=== PATIENT | male | born 1940 | race Caucasian/White ===

== ENCOUNTER 2018-04-11 10:29 | Inpatient (IN) ==
[~2018-04-11 10:29] MED LIST: DIAZEPAM 5 MG TABLET PO ONE; ceFAZolin 1,000 MG VIAL IRRIG ONE; ceFAZolin 1,000 MG in SYRINGE 1 EACH IV ONE; diphenhydrAMINE CAP 25 MG CAPSULE PO ONE
[2018-04-11] MEDS: SODIUM CHLORIDE 0.9% 1,000 ML IV SCH (11:33)
[2018-04-11 11:47] LABS: Basophils # 0.1 10*3/uL (0.0-0.2); Basophils % 0.6 % (0.0-0.8); Eosinophils # 0.2 10*3/uL (0.0-0.87); Eosinophils % 1.8 % (0.00-10.9); Hematocrit 39.9 VOL% (42.0-52.0); Hemoglobin 13.5 GM/DL (14.0-18.0); Immature Granulocytes % 0.4 %; Immature Granulocytes Absolute 0.03 #; Lymphocytes # 1.7 10*3/uL (1.4-4.0); Lymphocytes % 19.7 % (21.2-54.2); Mean Corpuscular HGB Conc 33.8 GM/DL (32-36); Mean Corpuscular Hemoglobin 29 PG (27-34); Mean Corpuscular Volume 84.9 FL (87-102); Mean Platelet Volume 10.1 FL (9.6-12.0); Monocytes # 0.8 10*3/uL (0.11-0.8); Monocytes % 8.8 % (1.7-12.7); Neutrophils # 5.9 10*3/uL (1.4-7.4); Neutrophils % 68.7 % (38.7-73.9); Platelet Count 187 T/CUMM (130-400); Red Cell Distribution Width 14.1 % (9.3-17.3); White Blood Count 8.6 T/CUMM (4-12)
[2018-04-11 12:22] LABS: Calcium 8.8 MG/DL (8.5-10.1); Osmolality,Calculated 282.4 MOS/KG (273-304); Potassium 3.7 MMOL/L (3.5-5.1)
[2018-04-11] MEDS ORDERED: diphenhydrAMINE CAP 25 MG CAPSULE ONE (12:53)
[2018-04-11] MEDS ORDERED: DIAZEPAM 5 MG TABLET ONE (12:53)
[2018-04-11] MEDS ORDERED: fentaNYL 50 MCG/HR PATCH TRANSDERM PRN (16:37)
[2018-04-11] MEDS ORDERED: hydrALAZINE 20 MG/1 ML VIAL IV PRN (16:58)
[2018-04-11] MEDS: LATANOPROST 0.005% OPH SOLN 2.5 ML BOTTLE BOTH EYES SCH (21:51)
[2018-04-12] MEDS: SODIUM CHLORIDE 0.9% 1,000 ML IV SCH ×2 (04:50→12:18)
[2018-04-12 05:41] LABS: Basophils # 0.1 10*3/uL (0.0-0.2); Eosinophils # 0.2 10*3/uL (0.0-0.87); Eosinophils % 3.7 % (0.00-10.9); Hematocrit 40.3 VOL% (42.0-52.0); Hemoglobin 13.7 GM/DL (14.0-18.0); Immature Granulocytes % 0.2 %; Immature Granulocytes Absolute 0.01 #; Lymphocytes # 1.7 10*3/uL (1.4-4.0); Lymphocytes % 29.3 % (21.2-54.2); Mean Corpuscular Hemoglobin 28 PG (27-34); Mean Corpuscular Volume 82.9 FL (87-102); Mean Platelet Volume 9.9 FL (9.6-12.0); Monocytes # 0.7 10*3/uL (0.11-0.8); Monocytes % 12.1 % (1.7-12.7); Neutrophils # 3.2 10*3/uL (1.4-7.4); Neutrophils % 53.7 % (38.7-73.9); Platelet Count 172 T/CUMM (130-400); Red Blood Count 4.86 MC/CUMM (3.8-5.5); Red Cell Distribution Width 14.2 % (9.3-17.3); White Blood Count 5.9 T/CUMM (4-12)
[2018-04-12 05:58] LABS: Calcium 8.7 MG/DL (8.5-10.1); Osmolality,Calculated 281.3 MOS/KG (273-304); Potassium 3.8 MMOL/L (3.5-5.1)
[2018-04-12] MEDS ORDERED: ceFAZolin 1,000 MG in SYRINGE 1 EACH IV ONE (11:30)
[2018-04-12] MEDS ORDERED: diphenhydrAMINE CAP 25 MG CAPSULE PO ONE (12:00)
[2018-04-12] MEDS ORDERED: DIAZEPAM 5 MG TABLET PO ONE (12:00)
[2018-04-12] MEDS ORDERED: ceFAZolin 1,000 MG VIAL IRRIG ONE (12:30)
[2018-04-12] MEDS ORDERED: HEPARIN/NACL 0.9% 2 UNITS/ML 500 ML IV ONE (12:58)
[2018-04-12] MEDS ORDERED: LIDOCAINE 1% 20 ML VIAL ONE (12:58)
[2018-04-12] MEDS ORDERED: MIDAZOLAM 2 MG/2 ML VIAL ONE ×4 (13:02→13:49)
[2018-04-12] MEDS ORDERED: ceFAZolin 1,000 MG VIAL ONE (13:02)
[2018-04-12] MEDS ORDERED: fentaNYL 100 MCG/2 ML VIAL ONE (13:02)
[2018-04-12] MEDS ORDERED: TISSUE ADHESIVE 1 EACH APPLICATOR TOP ONE (13:18)
[2018-04-12] MEDS: ASPIRIN EC 81 MG TABLET PO SCH (15:49)
[2018-04-12] MEDS: PANTOPRAZOLE 40 MG TABLET PO SCH (15:59)
[2018-04-12] MEDS: MONTELUKAST 10 MG TABLET PO SCH (15:59)
[2018-04-12] MEDS: oxyCODONE/ACETAMINOPHEN 5-325 MG TABLET PO PRN ×2 (15:59→20:18)
[2018-04-12] MEDS: amLODIPine 10 MG TABLET PO SCH (15:59)
[2018-04-12] MEDS: LATANOPROST 0.005% OPH SOLN 2.5 ML BOTTLE BOTH EYES SCH (20:18)
[2018-04-13] MEDS: oxyCODONE/ACETAMINOPHEN 5-325 MG TABLET PO PRN ×2 (01:14→10:08)
[2018-04-13 04:15] LABS: Basophils % 0.6 % (0.0-0.8); Eosinophils # 0.3 10*3/uL (0.0-0.87); Eosinophils % 4.1 % (0.00-10.9); Hematocrit 38.7 VOL% (42.0-52.0); Hemoglobin 13.2 GM/DL (14.0-18.0); Immature Granulocytes % 0.3 %; Immature Granulocytes Absolute 0.02 #; Lymphocytes # 1.5 10*3/uL (1.4-4.0); Lymphocytes % 23.9 % (21.2-54.2); Mean Corpuscular HGB Conc 34.1 GM/DL (32-36); Mean Corpuscular Hemoglobin 28 PG (27-34); Mean Corpuscular Volume 82.5 FL (87-102); Mean Platelet Volume 9.9 FL (9.6-12.0); Monocytes # 0.7 10*3/uL (0.11-0.8); Monocytes % 11.5 % (1.7-12.7); Neutrophils # 3.8 10*3/uL (1.4-7.4); Neutrophils % 59.6 % (38.7-73.9); Platelet Count 156 T/CUMM (130-400); Red Blood Count 4.69 MC/CUMM (3.8-5.5); White Blood Count 6.4 T/CUMM (4-12)
[2018-04-13 04:50] LABS: Calcium 8.3 MG/DL (8.5-10.1); Calcium 8.4 MG/DL (8.5-10.1); Osmolality,Calculated 278.5 MOS/KG (273-304); Osmolality,Calculated 279.4 MOS/KG (273-304); Potassium 3.7 MMOL/L (3.5-5.1)
[2018-04-13] MEDS: PANTOPRAZOLE 40 MG TABLET PO SCH (08:31)
[2018-04-13] MEDS: MONTELUKAST 10 MG TABLET PO SCH (08:31)
[2018-04-13] MEDS: amLODIPine 10 MG TABLET PO SCH (08:32)
[2018-04-13] MEDS: ASPIRIN EC 81 MG TABLET PO SCH (08:32)
[2018-04-13 11:41] VITALS: BP 142/76
== END 2018-04-13 14:20 | disposition home or self-care (01) | DRG 244 ==
LOC: N.CL 10:29 → N.TELEN 16:33 → N.2W 16:47 → N.TELEN 17:54
PROVIDERS: ADMIT Internal Medicine Cardiovascular Disease; ATTEND Internal Medicine Cardiovascular Disease

== ENCOUNTER 2021-04-05 00:16 | Inpatient (IN) ==
[2021-04-05] MEDS ORDERED: ONDANSETRON 4 MG/2 ML VIAL IV PRN (04:19)
[2021-04-05] MEDS: SODIUM CHLORIDE 0.9% 1,000 ML IV SCH ×2 (06:07→21:36)
[2021-04-05 06:17] LABS: Basophils % 0.2 % (0.0-0.8); Hematocrit 38.8 VOL% (42.0-52.0); Hemoglobin 12.2 GM/DL (14.0-18.0); Immature Granulocytes % 0.7 %; Immature Granulocytes Absolute 0.14 #; Lymphocytes % 4.7 % (21.2-54.2); Mean Corpuscular HGB Conc 31.4 GM/DL (32-36); Mean Corpuscular Volume 85.1 FL (87-102); Mean Platelet Volume 10.4 FL (9.6-12.0); Monocytes % 4.7 % (1.7-12.7); Neutrophils % 89.7 % (38.7-73.9); Platelet Count 208 T/CUMM (130-400); Red Blood Count 4.56 MC/CUMM (3.8-5.5); Red Cell Distribution Width 16.4 % (9.3-17.3); White Blood Count 20.1 T/CUMM (4-12)
[2021-04-05 06:26] LABS: INR 1.2; PT Patient Result 13.2 SECS (10.5-12.0)
[2021-04-05 06:43] LABS: Hypochromasia Slight; Lymphocytes 7 % (20-55); Microcytosis Slight; Platelet Estimate Adequate; Segmented Neutrophils 91 % (50-85); Total Cells Counted 100
[2021-04-05 07:02] LABS: Albumin 3.3 G/DL (3.4-5.0); Osmolality,Calculated 279.7 MOS/KG (273-304); Potassium 3.5 MMOL/L (3.5-5.1); Total Protein 7.6 G/DL (6.4-8.2)
[2021-04-05 07:15] LABS: Bilirubin,Total 3.8 MG/DL (0.20-1.00)
[2021-04-05] MEDS ORDERED: NALOXONE 0.4 MG/ML VIAL IV PRN (08:51)
[2021-04-05] MEDS: PANTOPRAZOLE 40 MG VIAL IV SCH (09:02)
[2021-04-05] MEDS: metroNIDAZOLE INJ 500 MG/100 ML PREMIX IV SCH ×3 (09:02→20:25)
[2021-04-05] MEDS: HYDROmorphone 2 MG/1 ML VIAL IV PRN ×4 (09:16→21:31)
[2021-04-05] MEDS: CIPROFLOXACIN INJ 400 MG/200 ML PREMIX IV SCH (11:45)
[2021-04-05] MEDS: ACETAMINOPHEN 325 MG TABLET PO PRN (11:58)
[2021-04-05] MEDS: GABAPENTIN 300 MG CAPSULE PO SCH ×2 (14:30→21:31)
[2021-04-05] MEDS ORDERED: ROSUVASTATIN 20 MG TABLET PO SCH (21:00)
[2021-04-05] MEDS: TAMSULOSIN 0.4 MG CAPSULE PO SCH (21:31)
[2021-04-05] MEDS: LATANOPROST 0.005% OPH SOLN 2.5 ML BOTTLE BOTH EYES SCH (21:31)
[2021-04-05] MEDS: METOPROLOL TARTRATE 25 MG TABLET PO SCH (21:31)
[2021-04-06] MEDS: CIPROFLOXACIN INJ 400 MG/200 ML PREMIX IV SCH ×2 (00:14→16:07)
[2021-04-06] MEDS: metroNIDAZOLE INJ 500 MG/100 ML PREMIX IV SCH ×4 (01:23→22:39)
[2021-04-06 06:56] LABS: Basophils % 0.4 % (0.0-0.8); Eosinophils # 0.1 10*3/uL (0.0-0.87); Eosinophils % 0.8 % (0.00-10.9); Hematocrit 35.1 VOL% (42.0-52.0); Hemoglobin 11.5 GM/DL (14.0-18.0); Immature Granulocytes % 0.5 %; Immature Granulocytes Absolute 0.05 #; Lymphocytes # 1.1 10*3/uL (1.4-4.0); Lymphocytes % 9.9 % (21.2-54.2); Mean Corpuscular HGB Conc 32.8 GM/DL (32-36); Mean Platelet Volume 10.9 FL (9.6-12.0); Monocytes % 7.1 % (1.7-12.7); Neutrophils % 81.3 % (38.7-73.9); Platelet Count 159 T/CUMM (130-400); Red Blood Count 4.18 MC/CUMM (3.8-5.5); Red Cell Distribution Width 16.7 % (9.3-17.3); White Blood Count 10.6 T/CUMM (4-12)
[2021-04-06 07:03] LABS: INR 1.3
[2021-04-06 07:35] LABS: Albumin 2.9 G/DL (3.4-5.0); Bilirubin,Total 2.2 MG/DL (0.20-1.00); Calcium 9.3 MG/DL (8.5-10.1); Osmolality,Calculated 271.1 MOS/KG (273-304); Potassium 3.1 MMOL/L (3.5-5.1); Total Protein 6.8 G/DL (6.4-8.2)
[2021-04-06] MEDS ORDERED: INDOMETHACIN SUPP 50 MG SUPP RECTAL ONE (08:00)
[2021-04-06] MEDS: PANTOPRAZOLE 40 MG VIAL IV SCH (08:47)
[2021-04-06] MEDS: amLODIPine 10 MG TABLET PO SCH (08:47)
[2021-04-06] MEDS: METOPROLOL TARTRATE 25 MG TABLET PO SCH ×2 (08:47→21:00)
[2021-04-06] MEDS: POTASSIUM CHLORIDE RIDER 10 MEQ/100 ML PREMIX IV PRN ×4 (08:48→18:31)
[2021-04-06 09:47] LABS: Bilirubin,Urine Negative (Negative); Blood, Urine Negative (Negative); Glucose,Urine (UA) Negative (Negative); Ketones,Urine Negative (Negative); Mucus,Urine Occasional /LPF (Occasional); Nitrite,Urine Negative (Negative); Protein,Urine Negative; RBC,Urine <1 /HPF (0-4); Urine Appearance CLEAR (Clear); Urine Color Yellow (Yellow); Urine Specific Gravity 1.009 (1.001-1.035); Urine Urobilinogen < 2.0 EU/DL (0.2-1.0)
[2021-04-06] MEDS: ASPIRIN EC 81 MG TABLET PO SCH (10:17)
[2021-04-06] MEDS: GABAPENTIN 300 MG CAPSULE PO SCH ×2 (10:17→21:00)
[2021-04-06] MEDS: KETOROLAC 15 MG/1 ML VIAL IV PRN ×2 (10:28→22:39)
[2021-04-06] MEDS: LACTATED RINGERS 1,000 ML IV SCH (12:30)
[2021-04-06] MEDS ORDERED: fentaNYL 100 MCG/2 ML VIAL ONE (12:49)
[2021-04-06] MEDS ORDERED: propofoL 200 MG/20 ML VIAL IV ONE (12:50)
[2021-04-06] MEDS ORDERED: LIDOCAINE 2% 5 ML VIAL ONE (12:50)
[2021-04-06] MEDS ORDERED: ONDANSETRON 4 MG/2 ML VIAL ONE (13:08)
[2021-04-06] MEDS ORDERED: SEVOFLURANE 1 UNIT/15 MINUTE INH ONE (13:08)
[2021-04-06] MEDS ORDERED: SUCCINYLCHOLINE 200 MG/10 ML VIAL ONE (13:08)
[2021-04-06] MEDS ORDERED: DEXAMETHASONE 4 MG/1 ML VIAL ONE (14:01)
[2021-04-06] MEDS: HYDROmorphone 2 MG/1 ML VIAL IV PRN ×2 (16:06→21:00)
[2021-04-06] MEDS: ACETAMINOPHEN 325 MG TABLET PO PRN (18:32)
[2021-04-06] MEDS: TAMSULOSIN 0.4 MG CAPSULE PO SCH (21:00)
[2021-04-06] MEDS: LATANOPROST 0.005% OPH SOLN 2.5 ML BOTTLE BOTH EYES SCH (21:06)
[2021-04-06] MEDS: SODIUM CHLORIDE 0.9% 1,000 ML IV SCH ×2 (22:43→22:45)
[2021-04-07] MEDS: HYDROmorphone 2 MG/1 ML VIAL IV PRN ×4 (02:18→22:25)
[2021-04-07] MEDS: CIPROFLOXACIN INJ 400 MG/200 ML PREMIX IV SCH ×2 (03:43→19:14)
[2021-04-07 06:08] LABS: Hematocrit 33.9 VOL% (42.0-52.0); Hemoglobin 10.7 GM/DL (14.0-18.0); Immature Granulocytes % 0.3 %; Immature Granulocytes Absolute 0.02 #; Lymphocytes # 0.6 10*3/uL (1.4-4.0); Lymphocytes % 9.1 % (21.2-54.2); Mean Corpuscular HGB Conc 31.6 GM/DL (32-36); Mean Corpuscular Volume 84.3 FL (87-102); Mean Platelet Volume 11.4 FL (9.6-12.0); Monocytes % 6.5 % (1.7-12.7); Neutrophils % 84.1 % (38.7-73.9); Platelet Count 144 T/CUMM (130-400); Red Blood Count 4.02 MC/CUMM (3.8-5.5); Red Cell Distribution Width 16.1 % (9.3-17.3); White Blood Count 6.3 T/CUMM (4-12)
[2021-04-07] MEDS: metroNIDAZOLE INJ 500 MG/100 ML PREMIX IV SCH ×3 (06:11→21:37)
[2021-04-07 06:19] LABS: INR 1.2; PT Patient Result 13.7 SECS (10.5-12.0)
[2021-04-07 06:32] LABS: Albumin 2.7 G/DL (3.4-5.0); Bilirubin,Total 1.4 MG/DL (0.20-1.00); Calcium 8.3 MG/DL (8.5-10.1); Osmolality,Calculated 280.7 MOS/KG (273-304); Potassium 3.4 MMOL/L (3.5-5.1); Total Protein 6.2 G/DL (6.4-8.2)
[2021-04-07 06:53] LABS: Risk Ratio 2.67; VLDL Cholesterol 12.8 MG/DL
[2021-04-07] MEDS ORDERED: POTASSIUM CHLORIDE 20 MEQ TABLET PO ONE (07:30)
[2021-04-07] MEDS: amLODIPine 10 MG TABLET PO SCH (09:21)
[2021-04-07] MEDS: METOPROLOL TARTRATE 25 MG TABLET PO SCH ×2 (09:21→21:37)
[2021-04-07] MEDS: PANTOPRAZOLE 40 MG VIAL IV SCH (09:23)
[2021-04-07] MEDS: GABAPENTIN 300 MG CAPSULE PO SCH ×2 (09:32→21:37)
[2021-04-07] MEDS: ASPIRIN EC 81 MG TABLET PO SCH (09:32)
[2021-04-07] MEDS ORDERED: LACTATED RINGERS 1,000 ML IV SCH (10:30)
[2021-04-07] MEDS ORDERED: fentaNYL 100 MCG/2 ML VIAL ONE (11:38)
[2021-04-07] MEDS ORDERED: propofoL 200 MG/20 ML VIAL IV ONE (11:43)
[2021-04-07] MEDS ORDERED: ROCURONIUM 50 MG/5 ML VIAL IV ONE (11:43)
[2021-04-07] MEDS ORDERED: LIDOCAINE 2% 5 ML VIAL ONE (11:43)
[2021-04-07] MEDS ORDERED: SUCCINYLCHOLINE 200 MG/10 ML VIAL ONE (11:43)
[2021-04-07] MEDS ORDERED: ETOMIDATE 40 MG/20 ML VIAL IV ONE (11:43)
[2021-04-07] MEDS ORDERED: PHENOL 1.4% THROAT SPRAY 177 ML BOTTLE PO PRN (11:47)
[2021-04-07] MEDS ORDERED: ONDANSETRON 4 MG/2 ML VIAL ONE (11:47)
[2021-04-07] MEDS ORDERED: BUPIVACAINE MPF 0.25% 30 ML VIAL ONE (11:51)
[2021-04-07] MEDS ORDERED: LIDOCAINE 1%/EPI INJ 20 ML VIAL ONE (11:51)
[2021-04-07] MEDS ORDERED: TISSUE ADHESIVE 1 EACH APPLICATOR TOP ONE (11:51)
[2021-04-07] MEDS ORDERED: NEOSTIGMINE 10 MG/10 ML VIAL ONE (13:04)
[2021-04-07] MEDS ORDERED: GLYCOPYRROLATE 0.4 MG/2 ML VIAL ONE (13:28)
[2021-04-07] MEDS ORDERED: SEVOFLURANE 1 UNIT/15 MINUTE INH ONE (13:29)
[2021-04-07] MEDS ORDERED: HYDROmorphone 2 MG/1 ML VIAL IV PRN (13:35)
[2021-04-07] MEDS ORDERED: ONDANSETRON 4 MG/2 ML VIAL IV PRN (13:35)
[2021-04-07] MEDS: LACTATED RINGERS 1,000 ML IV SCH (15:42)
[2021-04-07] MEDS: TAMSULOSIN 0.4 MG CAPSULE PO SCH (21:36)
[2021-04-07] MEDS: LATANOPROST 0.005% OPH SOLN 2.5 ML BOTTLE BOTH EYES SCH (21:37)
[2021-04-07] MEDS: SODIUM CHLORIDE 0.9% 1,000 ML IV SCH (22:24)
[2021-04-08] MEDS: SODIUM CHLORIDE 0.9% 1,000 ML IV SCH (00:46)
[2021-04-08] MEDS: HYDROmorphone 2 MG/1 ML VIAL IV PRN ×2 (02:34→07:39)
[2021-04-08] MEDS: metroNIDAZOLE INJ 500 MG/100 ML PREMIX IV SCH ×2 (02:35→09:28)
[2021-04-08] MEDS: CIPROFLOXACIN INJ 400 MG/200 ML PREMIX IV SCH (03:44)
[2021-04-08 06:04] LABS: Basophils % 0.1 % (0.0-0.8); Hemoglobin 11.8 GM/DL (14.0-18.0); Immature Granulocytes % 0.6 %; Immature Granulocytes Absolute 0.06 #; Lymphocytes % 10.6 % (21.2-54.2); Mean Corpuscular HGB Conc 31.9 GM/DL (32-36); Mean Corpuscular Volume 84.3 FL (87-102); Monocytes % 7.6 % (1.7-12.7); Neutrophils % 81.1 % (38.7-73.9); Platelet Count 175 T/CUMM (130-400); Red Blood Count 4.39 MC/CUMM (3.8-5.5); Red Cell Distribution Width 16.3 % (9.3-17.3); White Blood Count 9.4 T/CUMM (4-12)
[2021-04-08 06:11] LABS: INR 1.4; PT Patient Result 15.6 SECS (10.5-12.0)
[2021-04-08 06:38] LABS: Albumin 3.2 G/DL (3.4-5.0); Bilirubin,Total 1.4 MG/DL (0.20-1.00); Calcium 8.7 MG/DL (8.5-10.1); Osmolality,Calculated 278.7 MOS/KG (273-304); Potassium 3.7 MMOL/L (3.5-5.1)
[2021-04-08] MEDS: LACTATED RINGERS 1,000 ML IV SCH (07:40)
[2021-04-08] MEDS ORDERED: WARFARIN 5 MG TABLET PO ONE (09:15)
[2021-04-08] MEDS: GABAPENTIN 300 MG CAPSULE PO SCH (09:26)
[2021-04-08] MEDS: METOPROLOL TARTRATE 25 MG TABLET PO SCH (09:27)
[2021-04-08] MEDS: amLODIPine 10 MG TABLET PO SCH (09:27)
[2021-04-08] MEDS: ASPIRIN EC 81 MG TABLET PO SCH (09:27)
[2021-04-08] MEDS: PANTOPRAZOLE 40 MG VIAL IV SCH (09:27)
[2021-04-08 11:42] VITALS: BP 116/63
[2021-04-09] MEDS ORDERED: WARFARIN 2 MG TABLET PO SCH (18:00)
[2021-04-12] MEDS ORDERED: WARFARIN 2 MG TABLET PO SCH (18:00)
== END 2021-04-08 11:38 | disposition home or self-care (01) | DRG 419 ==
LOC: N.3E → OBSVTOIN 03:34 → SUATTDRO 03:34
PROVIDERS: ADMIT Internal Medicine; ATTEND Internal Medicine
PROC: ERCPWSP (ICD-10-PCS; 2021-04-06 11:35)
PROC: LAPCHOL (2021-04-07 12:17)

== ENCOUNTER 2021-05-23 05:57 | Inpatient (IN) ==
[2021-05-18 12:29] LABS: Basophils # 0.1 10*3/uL (0.0-0.2); Basophils % 0.8 % (0.0-0.8); Eosinophils # 0.3 10*3/uL (0.0-0.87); Eosinophils % 4.6 % (0.00-10.9); Hematocrit 35.9 VOL% (42.0-52.0); Hemoglobin 11.5 GM/DL (14.0-18.0); Immature Granulocytes % 0.2 %; Immature Granulocytes Absolute 0.01 #; Lymphocytes # 1.7 10*3/uL (1.4-4.0); Mean Corpuscular Volume 83.5 FL (87-102); Mean Platelet Volume 10.9 FL (9.6-12.0); Monocytes % 9.9 % (1.7-12.7); Neutrophils % 57.5 % (38.7-73.9); Platelet Count 176 T/CUMM (130-400); Red Cell Distribution Width 14.9 % (9.3-17.3); White Blood Count 6.3 T/CUMM (4-12)
[2021-05-18 12:42] LABS: PT Patient Result 31.4 SECS (10.5-12.0)
[2021-05-18 12:58] LABS: Albumin 3.9 G/DL (3.4-5.0); Calcium 8.7 MG/DL (8.5-10.1); Osmolality,Calculated 282.4 MOS/KG (273-304); Potassium 4.2 MMOL/L (3.5-5.1); Total Protein 7.1 G/DL (6.4-8.2)
[2021-05-23 06:57] LABS: INR 1.2; PT Patient Result 13.7 SECS (10.5-12.0)
[2021-05-23] MEDS ORDERED: PHENYLEPHRINE DRIP 20 MG/250 ML PREMIX IV ONE (07:39)
[2021-05-23] MEDS ORDERED: HEPARIN/NACL 0.9% 2 UNITS/ML 1,000 UNIT/500 ML BAG IV ONE (07:39)
[2021-05-23] MEDS ORDERED: NITROGLYCERIN DRIP 50 MG/250 ML BOTTLE IV ONE (07:46)
[2021-05-23] MEDS ORDERED: LACTATED RINGERS 1,000 ML IV SCH (08:00)
[2021-05-23] MEDS ORDERED: LIDOCAINE 1% 20 ML VIAL ONE (08:16)
[2021-05-23] MEDS ORDERED: HEPARIN 5,000 UNIT/1 ML VIAL ONE (08:16)
[2021-05-23] MEDS ORDERED: ROPIVACAINE 0.5% 30 ML VIAL ONE (08:54)
[2021-05-23] MEDS ORDERED: DEXAMETHASONE 4 MG/1 ML VIAL ONE ×2 (08:54→09:42)
[2021-05-23] MEDS ORDERED: DEXMEDETOMIDINE 200 MCG/2 ML VIAL ONE (08:54)
[2021-05-23] MEDS ORDERED: LIDOCAINE 1% 5 ML VIAL ONE ×2 (08:54→08:55)
[2021-05-23] MEDS ORDERED: ROCURONIUM 50 MG/5 ML VIAL IV ONE (09:10)
[2021-05-23] MEDS ORDERED: ETOMIDATE 40 MG/20 ML VIAL IV ONE (09:10)
[2021-05-23] MEDS ORDERED: fentaNYL 100 MCG/2 ML VIAL ONE (09:10)
[2021-05-23] MEDS ORDERED: LIDOCAINE 2% 5 ML VIAL ONE (09:10)
[2021-05-23] MEDS ORDERED: SEVOFLURANE 1 UNIT/15 MINUTE INH ONE (09:10)
[2021-05-23] MEDS ORDERED: SODIUM CHLORIDE 0.9% 1,000 ML IV ONE (09:10)
[2021-05-23] MEDS ORDERED: HEPARIN 10,000 UNIT/10 ML VIAL ONE (09:42)
[2021-05-23] MEDS ORDERED: ONDANSETRON 4 MG/2 ML VIAL ONE (09:42)
[2021-05-23] MEDS ORDERED: NEOSTIGMINE 10 MG/10 ML VIAL ONE (10:36)
[2021-05-23] MEDS ORDERED: PROTAMINE SULFATE 50 MG/5 ML VIAL IV ONE (10:40)
[2021-05-23] MEDS ORDERED: NITROPRUSSIDE 100 MG in DEXTROSE 5% 250 ML IV SCH (11:00)
[2021-05-23] MEDS ORDERED: PROMETHAZINE 25 MG/1 ML VIAL IM PRN (11:00)
[2021-05-23] MEDS ORDERED: oxyCODONE/ACETAMINOPHEN 5-325 MG TABLET PO PRN (11:00)
[2021-05-23] MEDS ORDERED: HYDROmorphone 2 MG/1 ML VIAL IV PRN (11:00)
[2021-05-23] MEDS ORDERED: PHENYLEPHRINE DRIP 40 MG/250 ML PREMIX IV SCH (11:00)
[2021-05-23] MEDS ORDERED: DEXTROSE 50% 25 GM/50 ML VIAL IV PRN (11:00)
[2021-05-23] MEDS ORDERED: NALOXONE 0.4 MG/ML VIAL IV PRN (11:00)
[2021-05-23] MEDS ORDERED: ONDANSETRON 4 MG/2 ML VIAL IV PRN ×2 (11:00→11:17)
[2021-05-23] MEDS ORDERED: GLUCAGON 1 MG VIAL IM PRN (11:00)
[2021-05-23] MEDS: HYDROmorphone 2 MG/1 ML VIAL IV PRN ×3 (11:25→11:50)
[2021-05-23] MEDS ORDERED: WARFARIN 2 MG TABLET PO SCH (11:30)
[2021-05-23] MEDS ORDERED: WARFARIN 4 MG TABLET PO SCH ×2 (11:30→18:00)
[2021-05-23] MEDS ORDERED: KETOROLAC 30 MG/1 ML VIAL ONE (11:59)
[2021-05-23] MEDS ORDERED: KETOROLAC 30 MG/1 ML VIAL IV ONE (12:00)
[2021-05-23] MEDS: LACTATED RINGERS 1,000 ML IV SCH ×2 (12:30→21:17)
[2021-05-23] MEDS: GABAPENTIN 300 MG CAPSULE PO PRN (18:04)
[2021-05-23] MEDS: oxyCODONE/ACETAMINOPHEN 5-325 MG TABLET PO PRN (20:17)
[2021-05-23] MEDS ORDERED: TAMSULOSIN 0.4 MG CAPSULE PO SCH (21:00)
[2021-05-23] MEDS ORDERED: LATANOPROST 0.005% OPH SOLN 2.5 ML BOTTLE BOTH EYES SCH (21:00)
[2021-05-23] MEDS: METOPROLOL TARTRATE 25 MG TABLET PO SCH (22:16)
[2021-05-24] MEDS: oxyCODONE/ACETAMINOPHEN 5-325 MG TABLET PO PRN ×2 (03:20→12:55)
[2021-05-24] MEDS: HYDROmorphone 2 MG/1 ML VIAL IV PRN ×4 (05:25→12:09)
[2021-05-24] MEDS: LACTATED RINGERS 1,000 ML IV SCH (07:55)
[2021-05-24] MEDS: METOPROLOL TARTRATE 25 MG TABLET PO SCH (08:20)
[2021-05-24] MEDS ORDERED: ROSUVASTATIN 20 MG TABLET PO SCH (09:00)
[2021-05-24] MEDS ORDERED: ASPIRIN EC 81 MG TABLET PO SCH ×2 (09:00)
[2021-05-24] MEDS ORDERED: OMEPRAZOLE ODT 20 MG TABLET PO SCH (09:00)
[2021-05-24] MEDS: GABAPENTIN 300 MG CAPSULE PO PRN (10:01)
[2021-05-24 11:28] LABS: Calcium 8.1 MG/DL (8.5-10.1); Osmolality,Calculated 280.5 MOS/KG (273-304); Potassium 4.1 MMOL/L (3.5-5.1)
[2021-05-24 12:18] VITALS: BP 127/46
[2021-05-24] MEDS ORDERED: WARFARIN 1 MG TABLET PO SCH (18:00)
== END 2021-05-24 14:30 | disposition home or self-care (01) | DRG 39 ==
LOC: N.SDSINP 05:57 → N.OR 05:57 → N.SDSINP 06:00 → EDSTATUS 11:45 → N.ICU 12:09
PROVIDERS: ADMIT Surgery; ATTEND Surgery

== ENCOUNTER 2022-04-13 14:16 | Inpatient (IN) ==
[2022-04-13] MEDS ORDERED: LACTATED RINGERS 1,000 ML IV ONE (14:47)
[2022-04-13 15:12] LABS: Basophils # 0.1 10*3/uL (0.0-0.2); Basophils % 0.4 % (0.0-0.8); Immature Granulocytes % 0.5 %; Immature Granulocytes Absolute 0.08 #; Lymphocytes # 0.9 10*3/uL (1.4-4.0); Lymphocytes % 5.8 % (21.2-54.2); Mean Corpuscular Volume 74.4 FL (87-102); Mean Platelet Volume 9.6 FL (9.6-12.0); Monocytes # 1.2 10*3/uL (0.11-0.8); Monocytes % 7.3 % (1.7-12.7); Platelet Count 295 T/CUMM (130-400); Red Blood Count 4.03 MC/CUMM (3.8-5.5); Red Cell Distribution Width 22.9 % (9.3-17.3); White Blood Count 16.1 T/CUMM (4-12)
[2022-04-13 15:25] LABS: INR 1.1; PT Patient Result 12.4 SECS (10.1-12.1)
[2022-04-13 15:32] LABS: Albumin 2.7 G/DL (3.4-5.0); Bilirubin,Total 0.5 MG/DL (0.20-1.00); Calcium 8.6 MG/DL (8.5-10.1); Osmolality,Calculated 278.4 MOS/KG (273-304); Potassium 4.5 MMOL/L (3.5-5.1); Total Protein 6.4 G/DL (6.4-8.2)
[2022-04-13 15:33] LABS: Anisocytosis 1+; Microcytosis 1+; Platelet Estimate Adequate
[2022-04-13] MEDS ORDERED: cefTRIAXone 1,000 MG in SODIUM CHLORIDE 0.9% 100 ML IV STA (15:57)
[2022-04-13] MEDS: LACTATED RINGERS 1,000 ML IV SCH (16:49)
[2022-04-13] MEDS ORDERED: ONDANSETRON 4 MG/2 ML VIAL IV PRN (17:12)
[2022-04-13] MEDS ORDERED: SODIUM CHLORIDE 0.9% 1,000 ML IV SCH (17:30)
[2022-04-13] MEDS ORDERED: FLUTICASONE 50 MCG NASAL SPRAY 16 GM BOTTLE BOTH NARES PRN (17:43)
[2022-04-13 19:59] LABS: Folate 19.55 NG/ML (5.38-24.0)
[2022-04-13 20:01] LABS: % Iron Saturation 6.8 % (18-50)
[2022-04-13 20:42] LABS: Hematocrit 25.7 VOL% (42.0-52.0); Hemoglobin 7.8 GM/DL (14.0-18.0)
[2022-04-13] MEDS: oxyCODONE/ACETAMINOPHEN 5-325 MG TABLET PO PRN (20:49)
[2022-04-13] MEDS: LATANOPROST 0.005% OPH SOLN 2.5 ML BOTTLE BOTH EYES SCH (20:49)
[2022-04-13] MEDS: METOPROLOL TARTRATE 25 MG TABLET PO SCH (20:50)
[2022-04-13] MEDS: TAMSULOSIN 0.4 MG CAPSULE PO SCH (20:50)
[2022-04-14] MEDS: HYDROmorphone 1 MG/1 ML SYRINGE IV PRN ×2 (02:09→05:08)
[2022-04-14] MEDS: LACTATED RINGERS 1,000 ML IV SCH (03:56)
[2022-04-14 05:24] LABS: Basophils # 0.1 10*3/uL (0.0-0.2); Basophils % 0.4 % (0.0-0.8); Eosinophils % 0.1 % (0.00-10.9); Hematocrit 24.2 VOL% (42.0-52.0); Hemoglobin 7.4 GM/DL (14.0-18.0); Immature Granulocytes % 0.3 %; Immature Granulocytes Absolute 0.05 #; Lymphocytes # 0.8 10*3/uL (1.4-4.0); Lymphocytes % 5.3 % (21.2-54.2); Mean Corpuscular HGB Conc 30.6 GM/DL (32-36); Mean Corpuscular Volume 74.7 FL (87-102); Mean Platelet Volume 9.8 FL (9.6-12.0); Monocytes # 0.8 10*3/uL (0.11-0.8); Monocytes % 5.2 % (1.7-12.7); Neutrophils % 88.7 % (38.7-73.9); Platelet Count 257 T/CUMM (130-400); Red Blood Count 3.24 MC/CUMM (3.8-5.5); Red Cell Distribution Width 22.7 % (9.3-17.3); White Blood Count 15.6 T/CUMM (4-12)
[2022-04-14 05:25] LABS: Hematocrit 24.1 VOL% (42.0-52.0); Hemoglobin 7.3 GM/DL (14.0-18.0)
[2022-04-14 05:58] LABS: Albumin 2.2 G/DL (3.4-5.0); Bilirubin,Total 0.8 MG/DL (0.20-1.00); Calcium 8.4 MG/DL (8.5-10.1); Osmolality,Calculated 273.4 MOS/KG (273-304); Potassium 4.2 MMOL/L (3.5-5.1); Total Protein 6.1 G/DL (6.4-8.2)
[2022-04-14 06:07] LABS: Platelet Estimate Adequate
[2022-04-14 06:09] LABS: Microcytosis 1+
[2022-04-14 06:10] LABS: Poikilocytosis 1+
[2022-04-14] MEDS: methIMAzole 5 MG TABLET PO SCH (09:09)
[2022-04-14] MEDS: OXYBUTYNIN XL 10 MG TABLET PO SCH (09:09)
[2022-04-14 09:10] LABS: Hematocrit 24.9 VOL% (42.0-52.0); Hemoglobin 7.5 GM/DL (14.0-18.0)
[2022-04-14] MEDS: PANTOPRAZOLE 40 MG TABLET PO SCH (09:10)
[2022-04-14] MEDS: METOPROLOL TARTRATE 25 MG TABLET PO SCH ×2 (09:10→20:31)
[2022-04-14] MEDS: DILTIAZEM CD 240 MG CAPSULE PO SCH (09:10)
[2022-04-14] MEDS: FINASTERIDE 5 MG TABLET PO SCH (09:10)
[2022-04-14] MEDS ORDERED: SODIUM CHLORIDE 0.9% 1,000 ML IV PRN (09:51)
[2022-04-14] MEDS ORDERED: ZINC OXIDE PASTE 113 GM TUBE TOP PRN (12:50)
[2022-04-14] MEDS ORDERED: propofoL 200 MG/20 ML VIAL IV ONE (16:04)
[2022-04-14] MEDS ORDERED: LIDOCAINE 2% 5 ML VIAL ONE (16:04)
[2022-04-14] MEDS: DIGOXIN 0.125 MG TABLET PO SCH (16:09)
[2022-04-14] MEDS ORDERED: SODIUM CHLORIDE 0.9% 1,000 ML IV ONE (16:24)
[2022-04-14] MEDS ORDERED: SEVOFLURANE 1 UNIT/15 MINUTE INH ONE ×4 (16:24)
[2022-04-14] MEDS ORDERED: fentaNYL 100 MCG/2 ML VIAL ONE (16:29)
[2022-04-14] MEDS ORDERED: BELLADONNA/OPIUM 30 MG SUPP RECTAL ONE (17:04)
[2022-04-14] MEDS ORDERED: BELLADONNA/OPIUM 30 MG SUPP RECTAL PRN (17:05)
[2022-04-14] MEDS: TAMSULOSIN 0.4 MG CAPSULE PO SCH (20:31)
[2022-04-14] MEDS: ACETAMINOPHEN 325 MG TABLET PO PRN (20:31)
[2022-04-14] MEDS: LATANOPROST 0.005% OPH SOLN 2.5 ML BOTTLE BOTH EYES SCH (20:32)
[2022-04-15] MEDS: LACTATED RINGERS 1,000 ML IV SCH ×4 (01:01→18:00)
[2022-04-15] MEDS: oxyCODONE/ACETAMINOPHEN 5-325 MG TABLET PO PRN (01:02)
[2022-04-15] MEDS: GABAPENTIN 300 MG CAPSULE PO PRN ×3 (01:02→21:18)
[2022-04-15 03:34] LABS: Urine Color Straw (Yellow)
[2022-04-15 03:35] LABS: Bilirubin,Urine Negative (Negative); Blood, Urine Large mg/dL (Negative); Glucose,Urine (UA) Negative (Negative); Ketones,Urine Negative (Negative); Nitrite,Urine Negative (Negative); Protein,Urine 30 mg/dL (Negative); Urine Appearance Clear (Clear); Urine Specific Gravity 1.015 (1.001-1.035); Urine Urobilinogen 0.2 eU/dL (<2.0)
[2022-04-15 03:37] LABS: Mucus,Urine Occasional /LPF (Occasional); RBC,Urine 13 /HPF (0-4)
[2022-04-15 05:10] LABS: Basophils % 0.1 % (0.0-0.8); Hematocrit 28.7 VOL% (42.0-52.0); Hemoglobin 8.8 GM/DL (14.0-18.0); Immature Granulocytes % 0.7 %; Immature Granulocytes Absolute 0.12 #; Lymphocytes % 5.9 % (21.2-54.2); Mean Corpuscular HGB Conc 30.7 GM/DL (32-36); Mean Corpuscular Volume 79.7 FL (87-102); Mean Platelet Volume 9.5 FL (9.6-12.0); Monocytes # 0.7 10*3/uL (0.11-0.8); Monocytes % 4.1 % (1.7-12.7); Neutrophils % 89.2 % (38.7-73.9); Platelet Count 181 T/CUMM (130-400); Red Cell Distribution Width 22.5 % (9.3-17.3); White Blood Count 16.9 T/CUMM (4-12)
[2022-04-15 05:34] LABS: Calcium 7.9 MG/DL (8.5-10.1); Osmolality,Calculated 276.8 MOS/KG (273-304); Potassium 3.9 MMOL/L (3.5-5.1)
[2022-04-15] MEDS ORDERED: MAGNESIUM SULF RIDER 4 GM/100 ML PREMIX IV PRN (05:50)
[2022-04-15] MEDS ORDERED: MAGNESIUM SULF RIDER 2 GM/50 ML PREMIX IV PRN (05:50)
[2022-04-15] MEDS: PANTOPRAZOLE 40 MG TABLET PO SCH (09:22)
[2022-04-15] MEDS: FINASTERIDE 5 MG TABLET PO SCH (09:22)
[2022-04-15] MEDS: DILTIAZEM CD 240 MG CAPSULE PO SCH (09:22)
[2022-04-15] MEDS: METOPROLOL TARTRATE 25 MG TABLET PO SCH ×2 (09:28→21:18)
[2022-04-15] MEDS: OXYBUTYNIN XL 10 MG TABLET PO SCH (09:28)
[2022-04-15] MEDS: methIMAzole 5 MG TABLET PO SCH (09:28)
[2022-04-15] MEDS: ROSUVASTATIN 20 MG TABLET PO SCH (09:28)
[2022-04-15] MEDS: DIGOXIN 0.125 MG TABLET PO SCH (12:41)
[2022-04-15] MEDS: ACETAMINOPHEN 325 MG TABLET PO PRN (16:31)
[2022-04-15] MEDS: TAMSULOSIN 0.4 MG CAPSULE PO SCH (21:19)
[2022-04-15] MEDS: LATANOPROST 0.005% OPH SOLN 2.5 ML BOTTLE BOTH EYES SCH (21:20)
[2022-04-16] MEDS: LACTATED RINGERS 1,000 ML IV SCH ×3 (03:32→23:44)
[2022-04-16] MEDS: GABAPENTIN 300 MG CAPSULE PO PRN ×2 (03:37→21:19)
[2022-04-16 06:29] LABS: Basophils % 0.1 % (0.0-0.8); Eosinophils % 0.1 % (0.00-10.9); Hematocrit 27.6 VOL% (42.0-52.0); Hemoglobin 8.5 GM/DL (14.0-18.0); Immature Granulocytes % 0.7 %; Lymphocytes # 0.7 10*3/uL (1.4-4.0); Lymphocytes % 5.2 % (21.2-54.2); Mean Corpuscular HGB Conc 30.8 GM/DL (32-36); Mean Corpuscular Volume 78.6 FL (87-102); Mean Platelet Volume 10.3 FL (9.6-12.0); Monocytes # 0.5 10*3/uL (0.11-0.8); Neutrophils % 89.9 % (38.7-73.9); Platelet Count 179 T/CUMM (130-400); Red Blood Count 3.51 MC/CUMM (3.8-5.5); Red Cell Distribution Width 22.8 % (9.3-17.3); White Blood Count 13.4 T/CUMM (4-12)
[2022-04-16 06:49] LABS: Calcium 8.4 MG/DL (8.5-10.1); Osmolality,Calculated 277.8 MOS/KG (273-304); Potassium 3.2 MMOL/L (3.5-5.1)
[2022-04-16] MEDS ORDERED: POTASSIUM CHLORIDE 20 MEQ TABLET PO ONE (08:00)
[2022-04-16] MEDS: oxyCODONE/ACETAMINOPHEN 5-325 MG TABLET PO PRN ×2 (09:27→21:20)
[2022-04-16] MEDS: METOPROLOL TARTRATE 25 MG TABLET PO SCH ×2 (09:27→21:19)
[2022-04-16] MEDS: methIMAzole 5 MG TABLET PO SCH (09:28)
[2022-04-16] MEDS: PANTOPRAZOLE 40 MG TABLET PO SCH (09:33)
[2022-04-16] MEDS: FINASTERIDE 5 MG TABLET PO SCH (09:33)
[2022-04-16] MEDS: OXYBUTYNIN XL 10 MG TABLET PO SCH (09:34)
[2022-04-16] MEDS: ROSUVASTATIN 20 MG TABLET PO SCH (09:34)
[2022-04-16] MEDS: DILTIAZEM CD 240 MG CAPSULE PO SCH (09:36)
[2022-04-16] MEDS: DIGOXIN 0.125 MG TABLET PO SCH (13:05)
[2022-04-16] MEDS: TAMSULOSIN 0.4 MG CAPSULE PO SCH (21:19)
[2022-04-16] MEDS: LATANOPROST 0.005% OPH SOLN 2.5 ML BOTTLE BOTH EYES SCH (21:24)
[2022-04-16] MEDS: ACETAMINOPHEN 325 MG TABLET PO PRN (23:46)
[2022-04-17 05:25] LABS: Basophils % 0.4 % (0.0-0.8); Eosinophils # 0.1 10*3/uL (0.0-0.87); Eosinophils % 1.3 % (0.00-10.9); Hematocrit 27.3 VOL% (42.0-52.0); Hemoglobin 8.3 GM/DL (14.0-18.0); Immature Granulocytes % 0.4 %; Immature Granulocytes Absolute 0.04 #; Lymphocytes # 1.3 10*3/uL (1.4-4.0); Lymphocytes % 13.5 % (21.2-54.2); Mean Corpuscular HGB Conc 30.4 GM/DL (32-36); Mean Corpuscular Volume 79.8 FL (87-102); Mean Platelet Volume 9.7 FL (9.6-12.0); Monocytes # 0.6 10*3/uL (0.11-0.8); Monocytes % 6.3 % (1.7-12.7); Neutrophils % 78.1 % (38.7-73.9); Platelet Count 180 T/CUMM (130-400); Red Blood Count 3.42 MC/CUMM (3.8-5.5); Red Cell Distribution Width 23.2 % (9.3-17.3); White Blood Count 9.3 T/CUMM (4-12)
[2022-04-17 05:42] LABS: Calcium 8.5 MG/DL (8.5-10.1); Osmolality,Calculated 275.7 MOS/KG (273-304); Potassium 4.5 MMOL/L (3.5-5.1)
[2022-04-17] MEDS: HYDROmorphone 1 MG/1 ML SYRINGE IV PRN (09:12)
[2022-04-17] MEDS ORDERED: propofoL 200 MG/20 ML VIAL IV ONE (15:47)
[2022-04-17] MEDS ORDERED: ONDANSETRON 4 MG/2 ML VIAL ONE (15:47)
[2022-04-17] MEDS ORDERED: SEVOFLURANE 1 UNIT/15 MINUTE INH ONE ×4 (15:47→18:09)
[2022-04-17] MEDS ORDERED: fentaNYL 100 MCG/2 ML VIAL ONE ×2 (15:47→17:00)
[2022-04-17] MEDS ORDERED: LIDOCAINE 2% 5 ML VIAL ONE (15:47)
[2022-04-17] MEDS ORDERED: NEOMYCIN/POLYMYXIN IRRIG SOLN 1 ML AMP BLADDERIRR ONE (15:50)
[2022-04-17] MEDS ORDERED: ESMOLOL 100 MG/10 ML VIAL IV ONE (16:57)
[2022-04-17] MEDS: DILTIAZEM CD 240 MG CAPSULE PO SCH (18:25)
[2022-04-17] MEDS: METOPROLOL TARTRATE 25 MG TABLET PO SCH ×2 (18:25→21:36)
[2022-04-17] MEDS: ROSUVASTATIN 20 MG TABLET PO SCH (18:25)
[2022-04-17] MEDS: OXYBUTYNIN XL 10 MG TABLET PO SCH (18:25)
[2022-04-17] MEDS: methIMAzole 5 MG TABLET PO SCH (18:26)
[2022-04-17] MEDS: PANTOPRAZOLE 40 MG TABLET PO SCH (18:26)
[2022-04-17] MEDS: FINASTERIDE 5 MG TABLET PO SCH (18:26)
[2022-04-17] MEDS: DIGOXIN 0.125 MG TABLET PO SCH (18:26)
[2022-04-17] MEDS: LACTATED RINGERS 1,000 ML IV SCH (18:27)
[2022-04-17] MEDS ORDERED: ONDANSETRON 4 MG/2 ML VIAL IV PRN (18:30)
[2022-04-17] MEDS ORDERED: HYDROmorphone 1 MG/1 ML SYRINGE IV PRN (18:32)
[2022-04-17 18:43] LABS: Basophils % 0.3 % (0.0-0.8); Eosinophils # 0.1 10*3/uL (0.0-0.87); Hematocrit 32.2 VOL% (42.0-52.0); Hemoglobin 9.7 GM/DL (14.0-18.0); Immature Granulocytes % 0.5 %; Immature Granulocytes Absolute 0.05 #; Lymphocytes # 1.1 10*3/uL (1.4-4.0); Lymphocytes % 11.6 % (21.2-54.2); Mean Corpuscular HGB Conc 30.1 GM/DL (32-36); Mean Corpuscular Volume 80.7 FL (87-102); Mean Platelet Volume 8.7 FL (9.6-12.0); Monocytes # 0.5 10*3/uL (0.11-0.8); Monocytes % 5.5 % (1.7-12.7); Neutrophils % 81.1 % (38.7-73.9); Platelet Count 216 T/CUMM (130-400); Red Blood Count 3.99 MC/CUMM (3.8-5.5); Red Cell Distribution Width 22.9 % (9.3-17.3); White Blood Count 9.6 T/CUMM (4-12)
[2022-04-17 19:04] LABS: Calcium 8.9 MG/DL (8.5-10.1); Potassium 4.9 MMOL/L (3.5-5.1)
[2022-04-17 19:22] LABS: Acanthocytes 1+; Hypochromia 1+; Platelet Estimate Normal; Poikilocytosis 1+
[2022-04-17] MEDS: TAMSULOSIN 0.4 MG CAPSULE PO SCH (21:36)
[2022-04-17] MEDS: GABAPENTIN 300 MG CAPSULE PO PRN (21:36)
[2022-04-17] MEDS: LATANOPROST 0.005% OPH SOLN 2.5 ML BOTTLE BOTH EYES SCH (21:37)
[2022-04-17] MEDS: oxyCODONE/ACETAMINOPHEN 5-325 MG TABLET PO PRN (21:37)
[2022-04-18 02:47] LABS: Basophils % 0.3 % (0.0-0.8); Eosinophils # 0.1 10*3/uL (0.0-0.87); Eosinophils % 0.9 % (0.00-10.9); Hematocrit 28.9 VOL% (42.0-52.0); Hemoglobin 8.8 GM/DL (14.0-18.0); Immature Granulocytes % 0.2 %; Immature Granulocytes Absolute 0.02 #; Lymphocytes # 0.8 10*3/uL (1.4-4.0); Mean Corpuscular HGB Conc 30.4 GM/DL (32-36); Mean Corpuscular Volume 80.7 FL (87-102); Mean Platelet Volume 9.4 FL (9.6-12.0); Monocytes # 0.6 10*3/uL (0.11-0.8); Monocytes % 6.5 % (1.7-12.7); Neutrophils % 83.1 % (38.7-73.9); Platelet Count 208 T/CUMM (130-400); Red Blood Count 3.58 MC/CUMM (3.8-5.5); Red Cell Distribution Width 22.8 % (9.3-17.3); White Blood Count 9.2 T/CUMM (4-12)
[2022-04-18 03:05] LABS: Calcium 8.1 MG/DL (8.5-10.1); Osmolality,Calculated 273.7 MOS/KG (273-304); Potassium 4.1 MMOL/L (3.5-5.1)
[2022-04-18 03:10] LABS: Platelet Estimate Adequate
[2022-04-18] MEDS: LACTATED RINGERS 1,000 ML IV SCH ×3 (07:45→17:42)
[2022-04-18] MEDS: methIMAzole 5 MG TABLET PO SCH (09:47)
[2022-04-18] MEDS: OXYBUTYNIN XL 10 MG TABLET PO SCH (09:47)
[2022-04-18] MEDS: METOPROLOL TARTRATE 25 MG TABLET PO SCH ×2 (09:48→20:43)
[2022-04-18] MEDS: FINASTERIDE 5 MG TABLET PO SCH (09:48)
[2022-04-18] MEDS: DILTIAZEM CD 240 MG CAPSULE PO SCH (09:48)
[2022-04-18] MEDS: PANTOPRAZOLE 40 MG TABLET PO SCH (09:48)
[2022-04-18] MEDS: ROSUVASTATIN 20 MG TABLET PO SCH (09:48)
[2022-04-18] MEDS: GABAPENTIN 300 MG CAPSULE PO PRN ×3 (09:50→20:43)
[2022-04-18] MEDS: HYDROmorphone 1 MG/1 ML SYRINGE IV PRN (12:39)
[2022-04-18] MEDS: DIGOXIN 0.125 MG TABLET PO SCH (13:52)
[2022-04-18] MEDS ORDERED: PHENOL 1.4% THROAT SPRAY 177 ML BOTTLE PO PRN (15:31)
[2022-04-18] MEDS: oxyCODONE/ACETAMINOPHEN 5-325 MG TABLET PO PRN ×2 (18:11→23:12)
[2022-04-18] MEDS: LATANOPROST 0.005% OPH SOLN 2.5 ML BOTTLE BOTH EYES SCH (20:43)
[2022-04-18] MEDS: TAMSULOSIN 0.4 MG CAPSULE PO SCH (20:43)
[2022-04-19] MEDS: LACTATED RINGERS 1,000 ML IV SCH ×2 (03:15→17:20)
[2022-04-19 05:29] LABS: Basophils % 0.5 % (0.0-0.8); Eosinophils # 0.2 10*3/uL (0.0-0.87); Eosinophils % 2.6 % (0.00-10.9); Hematocrit 30.2 VOL% (42.0-52.0); Hemoglobin 8.9 GM/DL (14.0-18.0); Immature Granulocytes % 0.4 %; Immature Granulocytes Absolute 0.03 #; Lymphocytes # 1.2 10*3/uL (1.4-4.0); Lymphocytes % 15.4 % (21.2-54.2); Mean Corpuscular HGB Conc 29.5 GM/DL (32-36); Mean Corpuscular Volume 80.7 FL (87-102); Mean Platelet Volume 9.5 FL (9.6-12.0); Monocytes # 0.7 10*3/uL (0.11-0.8); Monocytes % 8.1 % (1.7-12.7); Platelet Count 211 T/CUMM (130-400); Red Blood Count 3.74 MC/CUMM (3.8-5.5); Red Cell Distribution Width 22.5 % (9.3-17.3)
[2022-04-19 05:48] LABS: Calcium 8.7 MG/DL (8.5-10.1); Osmolality,Calculated 272.8 MOS/KG (273-304); Potassium 4.6 MMOL/L (3.5-5.1)
[2022-04-19] MEDS: ROSUVASTATIN 20 MG TABLET PO SCH (09:37)
[2022-04-19] MEDS: METOPROLOL TARTRATE 25 MG TABLET PO SCH ×2 (09:37→20:22)
[2022-04-19] MEDS: OXYBUTYNIN XL 10 MG TABLET PO SCH (09:37)
[2022-04-19] MEDS: methIMAzole 5 MG TABLET PO SCH (09:37)
[2022-04-19] MEDS: PANTOPRAZOLE 40 MG TABLET PO SCH (09:37)
[2022-04-19] MEDS: FINASTERIDE 5 MG TABLET PO SCH (09:37)
[2022-04-19] MEDS: DILTIAZEM CD 240 MG CAPSULE PO SCH (09:37)
[2022-04-19] MEDS: GABAPENTIN 300 MG CAPSULE PO PRN ×3 (09:41→23:45)
[2022-04-19] MEDS: oxyCODONE/ACETAMINOPHEN 5-325 MG TABLET PO PRN ×3 (09:41→23:44)
[2022-04-19] MEDS: DIGOXIN 0.125 MG TABLET PO SCH (14:40)
[2022-04-19] MEDS: TAMSULOSIN 0.4 MG CAPSULE PO SCH (20:22)
[2022-04-19] MEDS: LATANOPROST 0.005% OPH SOLN 2.5 ML BOTTLE BOTH EYES SCH (20:29)
[2022-04-20 05:49] LABS: Basophils # 0.1 10*3/uL (0.0-0.2); Basophils % 0.5 % (0.0-0.8); Eosinophils # 0.2 10*3/uL (0.0-0.87); Eosinophils % 2.3 % (0.00-10.9); Hematocrit 30.4 VOL% (42.0-52.0); Immature Granulocytes % 0.4 %; Immature Granulocytes Absolute 0.04 #; Lymphocytes # 1.4 10*3/uL (1.4-4.0); Lymphocytes % 14.3 % (21.2-54.2); Mean Corpuscular HGB Conc 29.6 GM/DL (32-36); Mean Corpuscular Volume 82.2 FL (87-102); Mean Platelet Volume 10.2 FL (9.6-12.0); Monocytes # 0.7 10*3/uL (0.11-0.8); Monocytes % 6.8 % (1.7-12.7); Neutrophils % 75.7 % (38.7-73.9); Platelet Count 193 T/CUMM (130-400); Red Cell Distribution Width 22.7 % (9.3-17.3); White Blood Count 10.1 T/CUMM (4-12)
[2022-04-20 06:05] LABS: Calcium 8.8 MG/DL (8.5-10.1); Osmolality,Calculated 273.8 MOS/KG (273-304); Potassium 3.9 MMOL/L (3.5-5.1)
[2022-04-20 06:17] LABS: Hypochromia 1+; Microcytosis 1+; Ovalocytes Few
[2022-04-20 06:18] LABS: Acanthocytes Few
[2022-04-20] MEDS: LACTATED RINGERS 1,000 ML IV SCH ×2 (07:00→16:52)
[2022-04-20] MEDS: METOPROLOL TARTRATE 25 MG TABLET PO SCH ×2 (08:34→21:35)
[2022-04-20] MEDS: methIMAzole 5 MG TABLET PO SCH (08:35)
[2022-04-20] MEDS: PANTOPRAZOLE 40 MG TABLET PO SCH (08:35)
[2022-04-20] MEDS: DILTIAZEM CD 240 MG CAPSULE PO SCH (08:35)
[2022-04-20] MEDS: oxyCODONE/ACETAMINOPHEN 5-325 MG TABLET PO PRN ×3 (08:35→21:42)
[2022-04-20] MEDS: ROSUVASTATIN 20 MG TABLET PO SCH (08:36)
[2022-04-20] MEDS: FINASTERIDE 5 MG TABLET PO SCH (08:36)
[2022-04-20] MEDS: GABAPENTIN 300 MG CAPSULE PO PRN ×2 (08:54→21:42)
[2022-04-20] MEDS: ASPIRIN CHEW 81 MG TABLET PO SCH (12:57)
[2022-04-20] MEDS: DIGOXIN 0.125 MG TABLET PO SCH (12:57)
[2022-04-20] MEDS: LATANOPROST 0.005% OPH SOLN 2.5 ML BOTTLE BOTH EYES SCH (21:34)
[2022-04-20] MEDS: TAMSULOSIN 0.4 MG CAPSULE PO SCH (21:34)
[2022-04-21 05:16] LABS: Basophils % 0.4 % (0.0-0.8); Eosinophils # 0.3 10*3/uL (0.0-0.87); Eosinophils % 3.1 % (0.00-10.9); Hematocrit 31.9 VOL% (42.0-52.0); Hemoglobin 9.6 GM/DL (14.0-18.0); Immature Granulocytes % 0.5 %; Immature Granulocytes Absolute 0.05 #; Lymphocytes # 1.3 10*3/uL (1.4-4.0); Lymphocytes % 13.4 % (21.2-54.2); Mean Corpuscular HGB Conc 30.1 GM/DL (32-36); Mean Corpuscular Volume 81.4 FL (87-102); Mean Platelet Volume 8.9 FL (9.6-12.0); Monocytes # 0.7 10*3/uL (0.11-0.8); Monocytes % 6.8 % (1.7-12.7); Neutrophils % 75.8 % (38.7-73.9); Platelet Count 260 T/CUMM (130-400); Red Blood Count 3.92 MC/CUMM (3.8-5.5); Red Cell Distribution Width 22.5 % (9.3-17.3); White Blood Count 9.7 T/CUMM (4-12)
[2022-04-21 05:32] LABS: Calcium 8.6 MG/DL (8.5-10.1); Potassium 4.5 MMOL/L (3.5-5.1)
[2022-04-21 05:46] LABS: Acanthocytes Few; Anisocytosis 1+; Hypochromia 1+; Microcytosis 1+; Ovalocytes Slight
[2022-04-21 05:50] LABS: Platelet Estimate Normal; Polychromasia Slight
[2022-04-21] MEDS: FINASTERIDE 5 MG TABLET PO SCH (08:59)
[2022-04-21] MEDS: methIMAzole 5 MG TABLET PO SCH (09:00)
[2022-04-21] MEDS: PANTOPRAZOLE 40 MG TABLET PO SCH (09:00)
[2022-04-21] MEDS: ROSUVASTATIN 20 MG TABLET PO SCH (09:00)
[2022-04-21] MEDS: DILTIAZEM CD 240 MG CAPSULE PO SCH (09:00)
[2022-04-21] MEDS: METOPROLOL TARTRATE 25 MG TABLET PO SCH (09:00)
[2022-04-21] MEDS: ASPIRIN CHEW 81 MG TABLET PO SCH (09:00)
[2022-04-21 09:07] VITALS: BP 144/52
[2022-04-21] MEDS: GABAPENTIN 300 MG CAPSULE PO PRN (09:21)
== END 2022-04-21 13:28 | disposition swing bed (61) | DRG 663 ==
LOC: N.ED 14:16 → N.EDINP 17:12 → SUATTDRO 17:12 → N.5E 17:37
PROVIDERS: ADMIT Internal Medicine; ATTEND Emergency Medicine